=== PATIENT | female | born 1960 | race Caucasian/White ===

== ENCOUNTER 2024-01-03 02:09 | Emergency (ER) | payer SELFPAY ==
[~2024-01-03] VITALS: Ht 162.6 cm; Wt 90.0 kg
[2024-01-03 02:12] VITALS: O2SAT 99
[2024-01-03 03:00] VITALS: TEMP 98.5
[2024-01-03 03:21] LABS: BASOPHILS % 0.9 % (0.0-2.0); EOSINOPHILS % 5.8 % (0.0-5.0); HEMATOCRIT. 40.9 % (36.0-48.0); HEMOGLOBIN. 13.7 g/dL (12.0-16.0); LYMPHOCYTES % 34.4 % (20.0-50.0); MEAN CORPUSCULAR HEMOGLOBIN 29.4 pg (28.0-32.0); MEAN CORPUSCULAR HGB CONC 33.5 g/dL (31.0-37.0); MEAN PLATELET VOLUME 8.5 fl (7.4-10.4); MONOCYTES % 8.7 % (2.0-8.0); NEUTROPHILS % 50.2 % (40.0-76.0); PLATELET 223 x1000/uL (130-400); RED BLOOD CELL COUNT 4.65 mill/uL (4.2-5.4); RED CELL DISTRIBUTION WIDTH 14.3 % (11.6-14.6); WHITE BLOOD COUNT 8.9 x1000/uL (4.5-11.0)
[2024-01-03 03:31] LABS: INR 0.9
[2024-01-03] MEDS: IOHEXOL-350 100 ML BOTTLE ONE (03:42)
[2024-01-03 03:47] LABS: LACTIC ACID 2.6 mmol/L (0.4-2.0)
[2024-01-03 03:50] LABS: ALANINE AMINOTRANSFERASE 13 IU/L (10-49); ALBUMIN 3.9 g/dL (3.2-4.8); ASPARTATE AMINOTRANSFERASE 19 IU/L (<34); BILIRUBIN TOTAL 0.3 mg/dL (0.1-1.0); CALCIUM 8.1 mg/dL (8.7-10.4); CARBON DIOXIDE 24 mEq/L (21-32); CHLORIDE 107 mEq/L (98-107); CREATININE 0.7 mg/dL (0.6-1.0); ETHANOL BLOOD < 10 mg/dL (<10); GLUCOSE 156 mg/dL (70-105); POTASSIUM 4.1 mEq/L (3.5-5.1); PROTEIN TOTAL 6.6 g/dL (6.0-8.3); SODIUM 138 mEq/L (136-145); TROPONIN I HIGH SENSITIVITY 4 ng/L (3.0-34); UREA NITROGEN BLOOD 12 mg/dL (9-23)
[2024-01-03 04:49] VITALS: BP 133/78; PULSE 72; RESP 12
[2024-01-03] MEDS: SODIUM CHLORIDE 0.9% 1,000 ML IV ONE (05:13)
== END 2024-01-03 05:19 | disposition short-term general hospital (02) ==
LOC: ER 02:18
DX: I65.1 Occlusion and stenosis of basilar artery (principal); I10 Essential (primary) hypertension; Z20.822 Contact with and (suspected) exposure to COVID-19
CPT/HCPCS: 80053; 80320; 82962; 83605; 85025; 85610; 84484; 36415; 71045; 70496; 70498; 70450; 93005; 96360; 99285; 87426; Q9967; J7030; G0480